=== PATIENT | male | born 1955 | race Caucasian/White ===

== ENCOUNTER 2019-12-01 14:45 | Outpatient (CLI) | payer SELFPAY | END 2019-12-01 23:59 | disposition home or self-care (01) | LOC: CFH 14:45 | PROVIDERS: ATTEND Psychiatry & Neurology Neurology | DX: Z02.9 Encounter for administrative examinations, unspecified (principal) ==

== ENCOUNTER 2021-08-12 12:50 | Outpatient (CLI) | payer MEDICARE, OTHER | END 2021-08-12 23:59 | disposition home or self-care (01) | LOC: CFH 12:50 | PROVIDERS: ATTEND Psychiatry & Neurology Neurology | DX: G31.9 Degenerative disease of nervous system, unspecified (principal); G25.0 Essential tremor | CPT/HCPCS: 70450 ==